=== PATIENT | female | born 1995 | race African-American/Black ===

== ENCOUNTER 2021-10-30 17:09 | Emergency (ER) | payer BC, SELFPAY ==
[2021-10-30 17:24] VITALS: BP 116/71; PULSE 74; RESP 16; TEMP 36.9; O2SAT 100
--- NOTE | 2021-10-30 18:21 | ED.SKABFB ---
HPI - Skin/Abscess/Foreign Bdy General Chief complaint: Skin/Abscess/Foreign Body Stated complaint: Rash Time Seen by Provider: 10/30/21 18:21 Source: patient and RN notes reviewed Mode of arrival: ambulatory Limitations: no limitations History of Present Illness HPI narrative: 26-year-old female presents to the [facility] with bruises to bilateral lateral aspect upper arms. Patient states they have been there for over a week and told her significant other she would go get it checked. Currently does not have a primary care provider. Dr. Mcadams is her [employer]IOR [employer]. Related Data Allergies Allergy/AdvReac Type Severity Reaction Status Date / Time No Known Allergies Allergy Verified 10/30/21 18:38 Review of Systems Review of Systems: All systems reviewed & are unremarkable except as noted in HPI and below Constitutional: Constitutional: Reports no additional constitutional complaints, Denies chills and Denies fever(s) Eyes: Eyes: Reports no additional eye complaints ENT: Reports system reviewed and no additional complaints, except as documented Cardiovascular: Cardiovascular: Reports no additional cardiovascular complaints Respiratory: Respiratory: Reports no additional respiratory complaints Gastrointestinal: Gastrointestinal: Reports no additional gastrointestinal complaints Musculoskeletal: Musculoskeletal: Reports no additional musculoskeletal complaints Integumentary/Breasts: Skin/Breast: Reports as per HPI, Denies pruritus, Denies erythema and Denies rash Neurologic: Reports system reviewed and no additional complaints, except as documented Psychiatric: Psychiatric: Reports no additional psychiatric complaints Allergic/Immunologic: Allergic/Immunologic: Reports no additional allergic/immunologic complaints PMFSH Past Medical History Medical History (Updated 10/30/21 @ 20:03 by Ann Landry APRN) Patient denies medical problems Surgical History Surgical History (Updated 10/30/21 @ 20:03 by Ann Landry APRN) No pertinent past surgical history Social History Social History (Updated 10/30/21 @ 20:03 by Ann Landry APRN) Gender identity (if verbalized by the patient): Female Comments At the time of my signature, I reviewed and agree with the nursing past medical, surgical, social, and family history. There is no relevant family history pertinent to the patient complaint. Exam Const: General: healthy appearing, no acute distress and alert Nutritional Appearance: well nourished Orientation/consciousness: patient oriented x3 Limitations: no limitations HENMT: Head: normal to inspection Ears: external ears normal Eyes: General: appearance normal, both eyes and all related structures Pupils: Equal, round and reactive pupils present Neck: Neck: normal visual inspection, no lymphadenopathy and no meningeal signs Chest: Chest palpation & inspection: normal inspection of the chest Resp: Effort & Inspection: normal respiratory effort and no use of accessory muscles Auscultation: clear to auscultation bilaterally, no crackles, no rales, no rhonchi and no wheezes Cardio: Rate: regular rate Rhythm: regular rhythm GI: GI Palp: Yes Soft to palpation and No Tenderness to palpation present (GI) Back/Spine/Pelvis: Cervical Spine: normal cervical lordosis Thoracic/Lumbar Spine: thoracic and lumbar spine normal to inspection Skin: General skin exam: normal color Rashes: no rashes Wounds: no wounds Other: Bruising is noted to upper arm. Lateral aspect right arm, 2 x 3 cm. Lateral aspect left arm 3 x 3 cm with an abrasion in the center. Patient denies any trauma. Neuro: General: patient oriented x3, moves all extremities, no meningeal signs and no focal motor deficits Cranial nerves: Yes Equal, round and reactive pupils present Speech: normal speech Gait exam (Neuro): Normal gait present Extrem: General: normal to inspection, full ROM and capillary refill normal Psych: Appearance: grossly
== END 2021-10-30 18:45 | disposition home or self-care (01) ==
PROVIDERS: Emergency Provider Nurse Practitioner
DX: R23.3 Spontaneous ecchymoses (principal)
CPT/HCPCS: 99211; G0463

== ENCOUNTER 2022-07-31 12:17 | Emergency (ER) | payer BC, SELFPAY ==
[2022-07-31 12:46] VITALS: BP 119/55; PULSE 65; RESP 18; TEMP 36.9; O2SAT 99
--- NOTE | 2022-07-31 12:49 | ED.SKABFB ---
HPI - Skin/Abscess/Foreign Bdy General Chief complaint: Skin/Abscess/Foreign Body Stated complaint: rash on lips Time Seen by Provider: 07/31/22 12:42 Source: patient Mode of arrival: ambulatory Limitations: no limitations History of Present Illness HPI narrative: Patient presents today complaining of a rash to her lips, primarily to the top lip that has been present since yesterday. Patient uses a lip scrubbed and recently added almond oil to her lip scrub over the past 1-2 weeks. This is the only change to her routine recently. Denies any itching or pain. She has not tried any [id number]-tsaczoa treatment prior to arrival. Denies any known allergy to almonds. Related Data Home Medications Medication Instructions Recorded Confirmed norethindrone 1 mg-ethinyl 1 tablet PO DAILY 07/31/22 07/31/22 estradiol 20 mcg (21)-iron 75 mg (7) tablet (Blisovi Fe 05/08 (28)) Allergies Allergy/AdvReac Type Severity Reaction Status Date / Time No Known Allergies Allergy Verified 07/31/22 12:20 Review of Systems Review of Systems: CONSTITUTIONAL: Denies body aches, fever, chills, or sweats. EYES: Denies visual changes, redness, or discharge. ENT: Denies rhinorrhea, congestion, sore throat, or otalgia. CARDIOVASCULAR: Denies chest pain, palpitations, or edema. RESPIRATORY: Denies cough or dyspnea. GASTROINTESTINAL: Denies abdominal pain, nausea, vomiting, or diarrhea. GENITOURINARY: Denies dysuria or hematuria. SKIN: Lip rash. MUSCULOSKELETAL: Denies back pain, joint pain, or myalgia. NEUROLOGIC: Denies headache, numbness, tingling, or weakness. PSYCH: Denies depression or anxiety. [facility] Past Medical History Medical History Patient denies medical problems Surgical History Surgical History No pertinent past surgical history Social History Social History Gender identity (if verbalized by the patient): Female Comments At time of signature, I have reviewed and agree with nursing past medical, surgical, social and family history unless otherwise noted. Please see nursing chart for further information. There is no relevant family history pertinent to the presenting complaint Exam Narrative: GENERAL: Well-appearing, well-nourished, and in no acute distress. HEAD: Normocephalic, atraumatic. EYES: EOMI. No redness or drainage. Conjunctivae normal. ENT: Mucous membranes pink and moist. Throat normal. Uvula midline. Tiny pinpoint papular rash to the lips, primarily the upper lip. No erythema, pustules, vesicles, drainage, crusting. No tenderness or induration. NECK: Normal AROM. CHEST: No respiratory distress. EXTREMITIES: Normal range of motion. SKIN: Warm, dry. Capillary refill normal. Normal skin turgor. NEURO: No focal deficits. Alert and oriented x3. Gait steady. PSYCH: Normal affect. No signs of depression or anxiety. Course Course Level of Care: Express Care Visit Vital Signs Vital signs: Vital Signs Temperature 98.5 F 07/31/22 12:46 Pulse Rate 65 07/31/22 12:46 Respiratory Rate 18 07/31/22 12:46 Blood Pressure 119/55 L 07/31/22 12:46 Pulse Oximetry 99 07/31/22 12:46 Oxygen Delivery Room Air 07/31/22 12:46 Temperature 98.5 F 07/31/22 12:46 Pulse Rate 65 07/31/22 12:46 Respiratory Rate 18 07/31/22 12:46 Blood Pressure 119/55 L 07/31/22 12:46 Pulse Oximetry 99 07/31/22 12:46 Oxygen Delivery Room Air 07/31/22 12:46 Reviewed MDM - Skin/Abscess/Foreign Bdy MDM Narrative Medical decision making narrative: Symptoms consistent with contact dermatitis. Instructed patient to stop any treatment to her lips, start an antihistamine, and do not restart any treatment with almond oil. Patient agrees with plan. No prescription medications indicated at this time. Soo resendiz
== END 2022-07-31 12:56 | disposition home or self-care (01) ==
PROVIDERS: Emergency Provider Nurse Practitioner
DX: L24.1 Irritant contact dermatitis due to oils and greases (principal)
CPT/HCPCS: 99211; G0463

== ENCOUNTER 2024-06-22 14:00 | Emergency (ER) | payer OTHER, SELFPAY ==
[2024-06-22 14:14] VITALS: BP 122/77; PULSE 77; RESP 20; TEMP 36.7; O2SAT 100
[2024-06-22 14:31] LABS: EDCOVIDSCREEN Negative (Negative); EDINFLUASCREEN Negative (Negative); EDINFLUBSCREEN Negative (Negative)
--- NOTE | 2024-06-22 14:38 | ED_ITS ---
HPI - URI/Sore Throat General Chief Complaint: Upper Respiratory Infection Stated Complaint: mucus,sore throat,fever,cough,SOTO Time Seen by Provider: 06/22/24 14:38 Source: patient, RN notes reviewed and old records reviewed Mode of arrival: ambulatory Limitations: no limitations History of Present Illness HPI Narrative: 29 year old female who [facility] with complaints of headache, fever, cough, and sore throat since Wednesday with some low grade fevers noted highest 100.5F. Patient reports that she has had one emesis and denies any further nausea or vomiting or diarrhea. Ppatient reports that she has been taking Tylenol and Mucinex for her symptoms. MD elicited complaint: fever, cough, sore throat and other (headache,) Onset (ago): day(s) (4) Severity: mild Description of mucous: clear Able to tolerate fluids by mouth: Yes Treatments prior to arrival: acetaminophen and other (Mucinex) Related Data Home Medications ?Medication ?Instructions ?Recorded ?Confirmed ?Last Taken ?Type norethindrone 1 mg-ethinyl 1 tablet PO DAILY 07/31/22 07/31/22 Unknown History estradiol 20 mcg (21)-iron 75 mg (7) tablet (Blisovi Fe 05/08 (28)) Allergies Allergy/AdvReac Type Severity Reaction Status Date / Time No Known Allergies Allergy Verified 06/22/24 14:11 Review of Systems Review of Systems: CONSTITUTIONAL: Reports malaise, chills, sweats, or fever. EYES: Denies visual changes, redness, or discharge. ENT: Reports rhinorrhea, congestion, sinus pain, no otalgia and positive for sore throat. CARDIOVASCULAR: Denies chest pain, palpitations, or edema. RESPIRATORY: Reports cough.? Denies dyspnea. GASTROINTESTINAL: Denies abdominal pain, nausea, vomiting X1, no diarrhea SKIN: Denies rash or itching. MUSCULOSKELETAL: Denies myalgia. NEUROLOGIC: Reports headache. All systems reviewed & are unremarkable except as noted in HPI and below PMFSH Past Medical History Medical History Patient denies medical problems Surgical History Surgical History No pertinent past surgical history Social History Social History Smoking status: Never smoker Alcohol intake: current Alcohol use details: social Substance use type: does not use Living arrangements: with family Gender identity (if verbalized by the patient): Female Comments At time of signature, agree with nursing past medical, surgical, social and family history. There is no relevant family history pertinent to the presenting complaint Exam Narrative: GENERAL: Well-appearing, well-nourished, and in no acute distress. HEAD: Normocephalic EYES: PERRLA, conjunctivae clear ENT: Nares clear, turbinates edematous and erythematous, clear discharge. Mucous membranes moist. TM pearly resendez with dull light reflex bilaterally; no tragal tenderness. Oropharynx erythematous without lesions. Tonsils not enlarged and without exudate, no drooling, no hoarseness, no trismus, uvula midline.post nasal drainage NECK: Supple. No lymphadenopathy CHEST: Clear to auscultation, breath sounds equal. No wheezing, rhonchi, rales, or stridor. No respiratory distress, speaks in full sentences.cough noted SAO2 100% on room air HEART: Regular rate and rhythm. No murmur heard. SKIN: Warm, dry, no rash. NEURO: Alert and oriented x3. PSYCH: Normal mood and affect Course Course Emergency Course: Patient is aware of diagnosis, understands and agrees to treatment plan.? Anticipatory guidance given.? Patient agrees to follow-up as directed and is aware of reasons to seek care at the emergency department. Portions of this record may have been created with voice recognition software Level of Care: Express Care Visit Vital Signs Vital signs: Vital Signs Temperature 36.7 C 06/22/24 14:14 Pulse Rate 77 06/22/24 14:14 Respiratory Rate 20 06/22/24 14:14 Blood Pressure 122/77 06/22/24 14:14 Pulse Oximetry 100 06/22/24 14:14 Oxygen Delivery Room Air 06/22/24 14:14 Temperature 36.7 C 06/22/24 14:14 Pulse Rate 77 06/22/24 14:45 Respiratory Rate 20 06/22/24 14:45 Blood Pressure 122/77 06/22/24 14:14 Pulse Oximetry 100 06/22/24 14:45 Oxygen Delivery Room Air 06/22/24 14:14 Reviewed MDM - URI/Sore Throat MDM Narrative Medical decision making narrative: Differential diagnosis considered: Chin virus, strep pharyngitis, allergic rhinitis, upper respiratory tract infection, sinusitis, rhinosinusitis, nasopharyngitis. viral pharyngitis, otitis media, otitis externa, pneumonia, bronchitis, viral cough syndrome, viral syndrome, and influenza.? Exam findings show no acute concerns or changes; patient is non-toxic appearing and is in no distress.? Patient is appropriate for outpatient treatment and follow-up. Differential Diagnosis Differential diagnosis: Likely upper respiratory infection, viral infection, influenza, pharyngitis and other (COVID, strep pharyngitis) Medical Records Attestation: I reviewed the patient's medical records. Lab Data Attestation: I reviewed the patient's lab results. Lab results narrative: Influenza A negative, Influenza B negative, Covid antigen negative, strep screen negative, culture sent Labs: Lab Results 06/22/24 06/22/24 Range/Units 14:12 14:51 POC Influenza A Ag Negative (Negative) POC Influenza B Ag Negative (Negative) POC SARS CoV-2 Ag Negative (Negative) POC Grp A Strep Screen Negative (Negative) reviewed Critical Care Time Critical Care Time Critical Care Time: No Discharge Plan Discharge Clinical Impression: Flu-like symptoms Patient Disposition: Home, Self-Care Condition: Stable Instructions: Viral Syndrome (ED) Additional Instructions: Increase fluids especially juices and water Pgzy-you-bgnxfxt cough and cold medicine of your choice for your symptoms Zyrtec, Claritin or Malorie daily Tylenol or ibuprofen for any fever pain heat to the face 20-30 minutes 4-6 times a day for pain Salt water gargles, throat lozenges or throat sprays as desired Delsym or Robitussin cough syrup Maintain light diet avoid spicy foods,caffeine, no alcohol Must be fever free for 24 hours without use of Tylenol or ibuprofen before you can return to work Patient Language: Slovenian Prescriptions: No Action norethindrone-e.estradiol-iron [Blisovi Fe 05/08 (28)] 1 mg-20 mcg (21)/75 mg (7) tablet 1 tablet PO DAILY Follow-up/Referrals: PHYSICIAN,INTERNET MARKETING DIRECTOR [Primary Care Provider] - Stand Alone Forms: Work/School Release IP Time of Disposition: 15:29 Quality [place] Coma Scale Eyes: Open Verbal: Oriented and Alert Motor: Follows Commands Gladys Coma Total Score: 15
[2024-06-22 14:45] VITALS: PULSE 77; RESP 20; O2SAT 100
[2024-06-22 15:03] LABS: EDSTREPNEGPOS1 Negative (Negative)
== END 2024-06-22 15:35 | disposition home or self-care (01) ==
PROVIDERS: Emergency Provider Registered Nurse
DX: J02.9 Acute pharyngitis, unspecified (principal); R50.9 Fever, unspecified; R05.9 Cough, unspecified; R51.9 Headache, unspecified
CPT/HCPCS: 87081; 87426; 87804; 87880; 99213; G0463